=== PATIENT | female | born 1955 | race Caucasian/White ===

== ENCOUNTER 2017-08-29 11:43 | Emergency (ER) | payer OTHER ==
[~2017-08-29] VITALS: Ht 160 cm; Wt 68.0 kg
[~2017-08-29 11:43] MED LIST: ALBU90OI INH; ALKA-SELTZER P1 EAC4 PO; ASPI325 PO; ASPI81CH; ATOR20 PO; AZIT250 PO; Augmentin 875-1 EACH PO; BLADDER PILL; BP MED; CHOLESTEROL MED; CLOP75; CLOP75 PO; CODGUAEL PO; CYCL10 PO; DIAZ5 PO; Esgic Tablet1 EACH PO; FENO67 PO; FISH1000 PO; FLUT1DIS2 INH; HYDACE5 PO; IBUP800 PO; LEVFLO500 PO; METO50 PO; NITR.4SL SL; Nitrostat0.4 MG SL; ONDA4 PO; OXYACE5T PO; Prinivil5 MG PO; Protonix40 MG PO; RXONDA4ODT MM; SULTRIDS PO; SULTRISS PO; TROSPIUM CHLORI20 MG PO
[2017-08-29] MEDS ORDERED: LISI5 PO (12:20)
[2017-08-29] MEDS ORDERED: BUDE10.22 INH (12:25)
[2017-08-29] MEDS ORDERED: ALBU90OI INH (12:59)
[2017-08-29] MEDS ORDERED: Cheratussin AC118 ML PO (12:59)
[2017-08-29] MEDS ORDERED: Prednisone20 MG PO (12:59)
== END 2017-08-29 13:06 | disposition home or self-care (01) ==
LOC: ER 11:43
DX: J40 Bronchitis, not specified as acute or chronic (principal); Z88.8 Allergy status to other drugs, medicaments and biological substances; Z88.1 Allergy status to other antibiotic agents; Z88.5 Allergy status to narcotic agent; Z88.2 Allergy status to sulfonamides; Z79.899 Other long term (current) drug therapy; Z79.82 Long term (current) use of aspirin; Z87.891 Personal history of nicotine dependence
CPT/HCPCS: 71046; 94640; 99284

== ENCOUNTER → 2019-07-12 | Outpatient (CLI) | payer OTHER ==
[~2019-07-12] MED LIST changes: +BUDE10.22 INH; +Cheratussin AC118 ML PO; +LISI5 PO; +Prednisone20 MG PO
[2019-07-17 11:07] LABS: M-SPIKE, % Not Observed % (Not Observed); PROTEIN,TOTAL,URINE 4.4 mg/dL (Not Estab.)
== END | disposition home or self-care (01) ==
LOC: LAB SHORT 15:27 → LAB 15:27
PROVIDERS: Internal Medicine
DX: Z00.01 Encounter for general adult medical examination with abnormal findings (principal)
CPT/HCPCS: 81050; 84156; 84166

== ENCOUNTER 2024-07-23 11:40 | Emergency (ER) | payer MEDICARE, OTHER ==
[~2024-07-23] VITALS: Ht 157.5 cm; Wt 63.5 kg
[2024-07-23] MEDS ORDERED: ATORVASTATIN CA20 MG PO (11:56)
[2024-07-23] MEDS ORDERED: Percocet 5-3251 EACH PO (12:49)
[2024-07-23 13:15] VITALS: BP 166/78
== END 2024-07-23 13:45 | disposition home or self-care (01) ==
LOC: ER 11:40
DX: S42.212A Unspecified displaced fracture of surgical neck of left humerus, initial encounter for closed fracture (principal); I25.10 Atherosclerotic heart disease of native coronary artery without angina pectoris; J44.9 Chronic obstructive pulmonary disease, unspecified; I10 Essential (primary) hypertension; Z91.041 Radiographic dye allergy status; Z88.1 Allergy status to other antibiotic agents; Z88.5 Allergy status to narcotic agent; Z88.8 Allergy status to other drugs, medicaments and biological substances; Z79.82 Long term (current) use of aspirin; Z79.899 Other long term (current) drug therapy; Z79.52 Long term (current) use of systemic steroids; Z87.891 Personal history of nicotine dependence; W18.30XA Fall on same level, unspecified, initial encounter
CPT/HCPCS: 29105; 73060; 99283-25

== ENCOUNTER 2024-09-05 14:35 | Emergency (ER) | payer MEDICARE, OTHER ==
[~2024-09-05] VITALS: Ht 157.5 cm; Wt 61.7 kg
[~2024-09-05 14:35] MED LIST changes: +ATORVASTATIN CA20 MG PO; +Percocet 5-3251 EACH PO
[2024-09-05 15:09] VITALS: BP 198/89
== END 2024-09-05 18:42 | disposition home or self-care (01) ==
LOC: ER 14:35
DX: S09.90XA Unspecified injury of head, initial encounter (principal); I25.10 Atherosclerotic heart disease of native coronary artery without angina pectoris; I10 Essential (primary) hypertension; J44.9 Chronic obstructive pulmonary disease, unspecified; Z87.891 Personal history of nicotine dependence; Z95.5 Presence of coronary angioplasty implant and graft; Z91.041 Radiographic dye allergy status; Z88.1 Allergy status to other antibiotic agents; Z88.5 Allergy status to narcotic agent; Z88.8 Allergy status to other drugs, medicaments and biological substances; Z88.2 Allergy status to sulfonamides; Z79.51 Long term (current) use of inhaled steroids; Z79.82 Long term (current) use of aspirin; Z79.899 Other long term (current) drug therapy; W19.XXXA Unspecified fall, initial encounter
CPT/HCPCS: 70450; 99283-25

== ENCOUNTER 2025-04-15 11:42 | Emergency (ER) | payer MEDICARE, OTHER ==
[~2025-04-15] VITALS: Ht 157.5 cm; Wt 60.8 kg
[2025-04-15 11:43] VITALS: BP 187/89
== END 2025-04-15 12:21 | disposition home or self-care (01) ==
LOC: ER 11:42
DX: R04.0 Epistaxis (principal); I25.10 Atherosclerotic heart disease of native coronary artery without angina pectoris; I73.9 Peripheral vascular disease, unspecified; I10 Essential (primary) hypertension; J44.9 Chronic obstructive pulmonary disease, unspecified; Z87.891 Personal history of nicotine dependence; Z95.820 Peripheral vascular angioplasty status with implants and grafts; Z88.5 Allergy status to narcotic agent; Z88.4 Allergy status to anesthetic agent; Z88.2 Allergy status to sulfonamides; Z88.1 Allergy status to other antibiotic agents; Z91.041 Radiographic dye allergy status; Z88.8 Allergy status to other drugs, medicaments and biological substances; Z79.82 Long term (current) use of aspirin; Z79.51 Long term (current) use of inhaled steroids; Z79.02 Long term (current) use of antithrombotics/antiplatelets; Z79.899 Other long term (current) drug therapy
CPT/HCPCS: 99283